=== PATIENT | female | born 1960 | race Two or more races ===

== ENCOUNTER 2019-11-02 09:43 | Day surgery (SDC) | payer OTHER | END 2019-11-02 14:18 | disposition home or self-care (01) | LOC: AMB-ENDOS 09:43 → ADM 14:45 | PROVIDERS: ATTEND Colon & Rectal Surgery | DX: K29.50 Unspecified chronic gastritis without bleeding (principal); K44.9 Diaphragmatic hernia without obstruction or gangrene ==

== ENCOUNTER 2024-04-16 09:58 | Outpatient (CLI) | payer OTHER | END 2024-04-16 10:04 | disposition home or self-care (01) | LOC: SONOGRAMA 09:58 | PROVIDERS: ATTEND Pathology Anatomic Pathology & Clinical Pathology | DX: E04.2 Nontoxic multinodular goiter (principal); D34 Benign neoplasm of thyroid gland; E06.3 Autoimmune thyroiditis ==

== ENCOUNTER 2025-02-04 07:06 | Outpatient (CLI) | payer OTHER | END 2025-02-04 07:18 | disposition home or self-care (01) | LOC: TOM 07:06 | PROVIDERS: ATTEND Internal Medicine Gastroenterology | DX: K59.00 Constipation, unspecified (principal); Z86.0100 Personal history of colon polyps, unspecified ==